=== PATIENT | female | born 2005 | race Caucasian/White ===

== ENCOUNTER 2024-06-26 02:56 | Emergency (ER) | payer SELFPAY ==
[2024-06-26 03:50] LABS: PT Prothrombin Time 10.7 SECONDS (9.4-12.5); PTT, Activated Partial Thromb 29.4 SECONDS (24.3-36.9); Protime INR 0.95
[2024-06-26 04:00] LABS: Absolute Basophils 0.1 K/uL (0-0.5); Absolute Eosinophils 0.1 K/uL (0-0.5); Absolute Lymphocytes (CBC) 2.6 K/uL (0.7-4.9); Absolute Neutrophil 5.9 K/uL (1.8-8.0); Eosinophils % 1.5 % (0-4.4); Hematocrit 44.7 % (36.0-45.0); Hemoglobin 14.8 g/dL (12.0-15.0); MCH 29.7 pg (27.0-35.0); MCHC 33.1 g/dL (32.0-36.0); MCV 89.8 fL (80-100); MPV 6.9 fL (7.6-11.3); Monocytes % 10.1 % (3.3-12.3); Neutrophils % 60.4 % (41.7-73.7); Platelets 471 thou/uL (152-406); RBC Red Blood Cell Count 4.98 M/uL (3.86-4.86); Red Cell Distribution Width 13.9 % (12.1-15.2)
[2024-06-26] MEDS ORDERED: CEFAZOLIN SODIUM 1 GM/VIAL ONE (04:12)
[2024-06-26] MEDS ORDERED: KETOROLAC 30 MG/ML INJ ONE (04:12)
[2024-06-26 04:18] LABS: ALT/SGPT 31 U/L (13-56); AST/SGOT 22 U/L (15-37); Albumin 4.1 g/dL (3.4-5.0); Albumin/Globulin Ratio 1.1 (1.1-1.8); Alkaline Phosphatase 102 U/L (45-117); Anion Gap 9.4 mEq/L (5.0-15.0); BUN Blood Urea Nitrogen 10 mg/dL (7-18); Bicarbonate 24 mEq/L (21-32); Bilirubin Total 0.2 mg/dL (0.2-1.0); Globulin 3.8 g/dL (2.3-3.5); Glomerular Filtration Rate 111 ml/min (=/>90); Glucose Level 179 mg/dL (74-106); Potassium 3.4 mEq/L (3.5-5.1); Protein, Total 7.9 g/dL (6.4-8.2); Sodium Level 141 mEq/L (136-145)
[2024-06-26 04:19] LABS: Bilirubin Direct < 0.2 mg/dL (0-0.2)
[2024-06-26] MEDS ORDERED: LIDOCAINE 1% 20 ML MDV ONE (04:23)
[2024-06-26 04:33] LABS: Specific Gravity 1.008 (1.005-1.030); Urine Bilirubin NEGATIVE (Negative); Urine Blood Negative (Negative); Urine Clarity Clear (Clear); Urine Color Colorless (Yellow); Urine Glucose NEGATIVE (Negative); Urine Ketones NEGATIVE (Negative); Urine Microscopic Reflex YN NO UMIC; Urine Nitrite NEGATIVE (Negative); Urine Protein NEGATIVE (Negative); Urine Urobilinogen Normal (Normal); Urine pH 5.5 (5.0-7.0)
[2024-06-26 04:34] LABS: Specific Gravity 1.008 (1.005-1.030)
[2024-06-26 04:50] LABS: Barbiturates NEGATIVE (NEGATIVE); Benzodiazepines NEGATIVE (NEGATIVE); Cocaine NEGATIVE (NEGATIVE); METHAMPHETAM NEGATIVE (NEGATIVE); Methadone NEGATIVE (NEGATIVE); Opiates NEGATIVE (NEGATIVE); Phencyclidine NEGATIVE (NEGATIVE); THC Cannibis NEGATIVE (NEGATIVE)
[2024-06-26] MEDS ORDERED: LORazepam 2 MG/ML VIAL ONE (05:43)
[2024-06-26] MEDS ORDERED: METOPROLOL TARTRATE 5 MG/5 ML INJ IV ONE (05:57)
[2024-06-26] MEDS ORDERED: ADENOSINE 6 MG/ 2ML VIAL IV ONE (05:58)
[2024-06-26] MEDS ORDERED: METOPROLOL TAR 50 MG TAB ONE (06:07)
[2024-06-26] MEDS ORDERED: NA CHLORIDE 0.9% 1,000 ML ONE (06:07)
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
[2024-06-26] MEDS ORDERED: ZIPRASIDONE MESYLA 20 MG/VIAL IM ONE (11:16)
[2024-06-27 10:37] VITALS: TEMP 98
[2024-06-27 10:38] VITALS: O2SAT 99
[2024-06-27 10:39] VITALS: BP 136/81
--- NOTE | 2024-06-28 12:43 | EKG ---
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
--- NOTE | 2024-06-28 12:43 | EKG ---
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
== END 2024-06-27 10:25 | disposition home or self-care (01) ==
LOC: ER 02:56 → EDBD 02:56 → ER 06-27 10:25
PROC: 0HQEXZZ Repair Left Lower Arm Skin, External Approach (ICD-10-PCS; principal; 2024-06-27)
PROC: 0HQDXZZ Repair Right Lower Arm Skin, External Approach (ICD-10-PCS; 2024-06-27)
DX: S51.812A Laceration without foreign body of left forearm, initial encounter (principal); S51.811A Laceration without foreign body of right forearm, initial encounter; X78.9XXA Intentional self-harm by unspecified sharp object, initial encounter; F19.10 Other psychoactive substance abuse, uncomplicated
CPT/HCPCS: 12002; 36415; 51702; 80048; 80076; 80143; 80179; 80307; 81003; 81025; 82077; 85025; 85610; 85730; 93005; 96365; 96366; 96372; 96375; 99285; J0153; J0690; J2001; J3486; J7030